=== PATIENT | female | born 1960 | race Caucasian/White ===

== ENCOUNTER 2024-03-03 14:02 | Emergency (ER) | payer OTHER ==
[~2024-03-03] VITALS: Ht 165.1 cm; Wt 96.4 kg
[2024-03-03] MEDS ORDERED: IBLOOD GLUCOSE TEST STRIP 1 EA TEST XX ONE (14:30)
[2024-03-03 14:39] LABS: BASOPHILS 0.8 % (0-2); EOSINOPHILS 0.4 % (0-6); HEMATOCRIT 37.3 % (35.0-50.0); HEMOGLOBIN 12.6 g/dL (12.0-18.0); LYMPHOCYTES 42.2 % (24-44); MCH 31.3 (27-36); MCHC 33.9 g/dl (30-36); MCV 92.3 fl (81-99); MONOCYTES 4.8 % (0-12); NEUTROPHILS 51.8 % (39-80); PLATELET COUNT 347 K/uL (140-440); RBC 4.04 M/ul (4.3-5.7); RDW 13.1 (10.5-15.0)
[2024-03-03] MEDS ORDERED: ondansetron HCL 4 MG/2 ML VIAL IV ONE (14:45)
[2024-03-03 14:59] LABS: ALBUMIN 3.5 g/dL (3.4-5.0); ALBUMIN/GLOBULIN RATIO 0.97 (1.1-2.4); ALKALINE PHOSPHATASE 56 U/L (46-116); ALT (SGPT) 21 U/L (14-59); ANION GAP 11.7 (7-21); AST (SGOT) 15 U/L (15-37); BILIRUBIN, TOTAL 0.3 ng/dL (0.2-1.0); BUN/CREATININE RATIO 14.41 (6.0-28.6); CARBON DIOXIDE 28 mmol/L (21-32); CHLORIDE 103 mmol/L (98-107); CREATININE, SERUM 1.11 mg/dL (0.55-1.02); GLOMERULAR FILTRATION RATE,EST 55 mL/min (>60); MAGNESIUM 2.3 mg/dL (1.8-2.4); POTASSIUM 3.7 mmol/L (3.5-5.1); PROTEIN, TOTAL 7.1 g/dL (6.4-8.2); UREA NITROGEN 16 mg/dL (7-18)
[2024-03-03 17:39] VITALS: BP 121/64
--- NOTE | 2024-03-03 21:29 | EKG ---
[facility] [address] [facility] [place] [address] Signed Sinus bradycardia Otherwise normal ECG When compared with ECG of 25-DEC-2022 03:11, No significant change was found Confirmed by Dariel Espinoza MD () on 03/03/2024 9:29:33 PM Electronically Signed By: DARIEL ESPINOZA MD 03/03/242128 PATIENT NAME: MODESTA KING Electrocardiogram DATE OF : 56 PHYSICIAN: DARIEL ESPINOZA MD REPORT #: [id number] REPORT IS CONFIDENTIAL AND NOT TO BE RELEASED WITHOUT AUTHORIZATION
== END 2024-03-03 17:54 | disposition home or self-care (01) ==
LOC: ED 14:02
PROVIDERS: Emergency Medicine
DX: R55 Syncope and collapse (principal); R73.03 Prediabetes; Z91.018 Allergy to other foods; Z79.899 Other long term (current) drug therapy
CPT/HCPCS: 36415; 80053; 83735; 84484; 85025; 93005; 93010; 96374; 99284-25; J2405